=== PATIENT | male | born 1965 ===

== ENCOUNTER 2023-02-24 05:30 | Day surgery (SDC) | payer OTHER ==
[~2023-02-24] VITALS: Ht 162.6 cm; Wt 68.5 kg
[~2023-02-24 05:30] MED LIST: CRESTOR10 MG PO; LOSARTAN-HCTZ1 EAC2 PO
== END 2023-02-24 11:20 | disposition home or self-care (01) ==
LOC: CIR.AMB 05:30
PROVIDERS: ATTEND Orthopaedic Surgery Hand Surgery
DX: D21.12 Benign neoplasm of connective and other soft tissue of left upper limb, including shoulder (principal); M67.432 Ganglion, left wrist; R22.32 Localized swelling, mass and lump, left upper limb; Z20.822 Contact with and (suspected) exposure to COVID-19; E11.9 Type 2 diabetes mellitus without complications; E78.00 Pure hypercholesterolemia, unspecified; E78.3 Hyperchylomicronemia; I10 Essential (primary) hypertension; Z79.4 Long term (current) use of insulin; Z88.0 Allergy status to penicillin